=== PATIENT | female | born 1990 | race African-American/Black ===

== ENCOUNTER 2017-12-13 17:39 | Emergency (ER) | payer MEDICAID, OTHER ==
[~2017-12-13] VITALS: Ht 154.9 cm; Wt 101.2 kg
[~2017-12-13 17:39] MED LIST: NO HOME MEDS
[2017-12-13 19:05] VITALS: BP 126/58
[2017-12-14] MEDS ORDERED: NAPR-56 PO (03:10)
== END 2017-12-14 01:57 | disposition left against medical advice (07) ==
LOC: ER 17:39
DX: M25.572 Pain in left ankle and joints of left foot (principal); Z53.21 Procedure and treatment not carried out due to patient leaving prior to being seen by health care provider
CPT/HCPCS: 73610; 99281

== ENCOUNTER 2017-12-14 02:32 | Emergency (ER) | payer MEDICAID, OTHER ==
[~2017-12-14] VITALS: Ht 165.1 cm; Wt 110.0 kg
[2017-12-14] MEDS ORDERED: NAPR-56 PO (03:10)
[2017-12-14] MEDS ORDERED: naproxen 500mg tablet PO ONE (03:10)
[2017-12-14 03:59] VITALS: BP 140/89
== END 2017-12-14 04:02 | disposition home or self-care (01) ==
LOC: ER 02:32
DX: S93.402A Sprain of unspecified ligament of left ankle, initial encounter (principal); F12.10 Cannabis abuse, uncomplicated; F15.10 Other stimulant abuse, uncomplicated; F14.10 Cocaine abuse, uncomplicated; Z56.0 Unemployment, unspecified; Z79.899 Other long term (current) drug therapy; X58.XXXA Exposure to other specified factors, initial encounter; Y93.01 Activity, walking, marching and hiking; Y92.89 Other specified places as the place of occurrence of the external cause; Y99.8 Other external cause status
CPT/HCPCS: 29515; 99283

== ENCOUNTER 2021-08-10 13:14 | Emergency (ER) | payer MEDICAID ==
[~2021-08-10] VITALS: Ht 154.9 cm; Wt 72.7 kg
[~2021-08-10 13:14] MED LIST changes: +PANT-47 PO
[2021-08-10 13:22] VITALS: BP 120/80
[2021-08-10] MEDS ORDERED: glucagon, human recombinant 1mg kit IV ONE (14:40)
[2021-08-10] MEDS ORDERED: nitroGLYCERIN 0.4mg SUBLingual tab SL PRN (14:40)
--- NOTE | 2021-08-10 16:20 | NUR ---
pt walking out of er when stopped and asked what was wrong pt stated she was tired of waiting and was leaving. tried to explain to pt that gi were aon their way but pt started argueing with staff then became verbally abusive. iv removed and pt left
== END 2021-08-10 16:29 | disposition left against medical advice (07) ==
LOC: ER 13:14
DX: T18.128A Food in esophagus causing other injury, initial encounter (principal); R11.10 Vomiting, unspecified; F32.9 Major depressive disorder, single episode, unspecified; F20.9 Schizophrenia, unspecified; F12.90 Cannabis use, unspecified, uncomplicated; F15.90 Other stimulant use, unspecified, uncomplicated; F14.90 Cocaine use, unspecified, uncomplicated; Z72.89 Other problems related to lifestyle; Z56.0 Unemployment, unspecified; Z79.899 Other long term (current) drug therapy; X58.XXXA Exposure to other specified factors, initial encounter; Y93.89 Activity, other specified; Y92.89 Other specified places as the place of occurrence of the external cause; Y99.8 Other external cause status
CPT/HCPCS: 96374; 99283; J1610

== ENCOUNTER 2021-08-11 20:03 | Emergency (ER) | payer MEDICAID ==
[~2021-08-11] VITALS: Ht 154.9 cm; Wt 67.0 kg
[2021-08-11] MEDS ORDERED: nitroGLYCERIN 0.4mg SUBLingual tab SL ONE (21:20)
[2021-08-11] MEDS ORDERED: ondansetron/PF 4mg/2ml inj IV ONE (21:20)
[2021-08-11] MEDS ORDERED: normal saline 1000ML IV soln IVB ONE (21:20)
[2021-08-11] MEDS ORDERED: glucagon, human recombinant 1mg kit IV ONE ×2 (21:20→22:00)
[2021-08-11] MEDS ORDERED: sucralfate 1gm/10ml UD suspension PO STA (21:23)
[2021-08-11] MEDS ORDERED: LIDOcaine Viscous 15ml cup MM ONE (21:25)
[2021-08-11] MEDS ORDERED: mag hydrox/Alum hydrox/simeth 30ml oral suspension PO ONE (21:25)
[2021-08-11] MEDS ORDERED: nitroGLYCERIN 0.4mg SUBLingual tab SL STA (22:00)
[2021-08-11] MEDS ORDERED: LORazepam 2 mg/ml vial IV ONE (22:00)
--- NOTE | 2021-08-11 22:04 | NUR ---
Patient given zofran and then given water to sip. Shortly after water intake pt spit up water, unable to keep it down.
[2021-08-11 22:13] VITALS: BP 124/68
[2021-08-11] MEDS ORDERED: sucralfate 1 gm tablet PO STA (22:34)
== END 2021-08-11 23:25 | disposition home or self-care (01) ==
LOC: ER 20:04
DX: K20.90 Esophagitis, unspecified without bleeding (principal); K22.2 Esophageal obstruction; F32.9 Major depressive disorder, single episode, unspecified; F20.9 Schizophrenia, unspecified; F12.90 Cannabis use, unspecified, uncomplicated; F15.90 Other stimulant use, unspecified, uncomplicated; F14.90 Cocaine use, unspecified, uncomplicated; Z72.89 Other problems related to lifestyle; Z56.0 Unemployment, unspecified; Z79.899 Other long term (current) drug therapy
CPT/HCPCS: 96361; 96374; 96375; 99284; J1610; J2060; J2405; J7030

== ENCOUNTER 2021-12-30 15:11 | Emergency (ER) | payer MEDICAID ==
[~2021-12-30] VITALS: Ht 175.3 cm; Wt 68.2 kg
[2021-12-30] MEDS ORDERED: nitroGLYCERIN 1gm ointment UD TP ONE (18:55)
[2021-12-30] MEDS ORDERED: mag hydrox/Alum hydrox/simeth 30ml oral suspension PO ONE (18:55)
[2021-12-30] MEDS ORDERED: normal saline 1000ml 1,000 ML IV ONE (18:55)
[2021-12-30] MEDS ORDERED: ondansetron/PF 4mg/2ml inj IV ONE (18:55)
[2021-12-30] MEDS ORDERED: LIDOcaine Viscous 15ml cup MM ONE (18:55)
[2021-12-30] MEDS ORDERED: LORazepam 2 mg/ml vial IV ONE (18:55)
[2021-12-30] MEDS ORDERED: glucagon, human recombinant 1mg kit IV ONE (18:55)
--- NOTE | 2021-12-30 20:20 | NUR ---
patient is still spitting up what looks like james
[2021-12-30] MEDS ORDERED: normal saline 1000ML IV soln IVB ONE (21:30)
[2021-12-30 21:49] LABS: BASOPHILS # (AUTO) 0.1 X10'3 (0-0.2); BASOPHILS % (AUTO) 0.6 % (0-1); EOSINOPHILS # (AUTO) 0.2 X10'3 (0-0.9); EOSINOPHILS % (AUTO) 2.3 % (0-6); HEMATOCRIT 33.3 % (35.0-45.0); HEMOGLOBIN 11.1 g/dl (12.0-16.0); LYMPHOCYTES # (AUTO) 1.7 X10'3 (1.1-4.8); LYMPHOCYTES % (AUTO) 17.6 % (21-51); MEAN CORPUSCULAR HEMOGLOBIN 30.6 PG (27.0-31.0); MEAN CORPUSCULAR HGB CONC 33.3 g/dL (33.0-36.5); MEAN PLATELET VOLUME 6.8 FL (7.4-10.4); MONOCYTES # (AUTO) 0.6 X10'3 (0-0.9); MONOCYTES % (AUTO) 6.5 % (2-12); NEUTROPHILS # (AUTO) 6.9 X10'3 (1.8-7.7); PLATELET COUNT 283 X10'3 (140-440); RED BLOOD COUNT 3.62 X10'6 (4.20-5.60); RED CELL DISTRIBUTION WIDTH 13.5 % (11.5-14.5); WHITE BLOOD COUNT 9.5 X10'3 (4.5-11.0)
[2021-12-30 21:56] LABS: ALANINE AMINOTRANSFERASE 26 U/L (12-78); ALBUMIN 3.6 G/DL (3.4-5.0); ALKALINE PHOSPHATASE 68 IU/L (46-116); ANION GAP 8 (8-16); ASPARTATE AMINO TRANSFERASE 21 U/L (10-37); BLOOD UREA NITROGEN 15 MG/DL (7-18); BUN/CREATININE RATIO 29.4 (6.6-38.0); CHLORIDE 114 MMOL/L (99-107); CREATININE 0.51 MG/DL (0.40-0.90); GLUCOSE 68 MG/DL (70-104); LIPASE 69 U/L (73-393); POTASSIUM 3.5 MMOL/L (3.5-5.1); SODIUM 148 MMOL/L (135-145); TOTAL CARBON DIOXIDE 25.6 MMOL/L (24-32); TOTAL PROTEIN 7.2 G/DL (6.4-8.2); eGFR > 90 ML/MIN
[2021-12-31 02:41] LABS: URINE HCG NEGATIVE (NEG)
[2021-12-31 02:47] LABS: CLARITY,URINE CLEAR (Clear); COLOR,URINE YELLOW (Yellow); GLUCOSE, URINE NEGATIVE (Neg); KETONES,URINE 40 mg/dl (Neg); LEUKOCYTE ESTERASE ,URINE NEGATIVE (Neg); NITRITES, URINE NEGATIVE (Neg); OCCULT BLOOD,URINE NEGATIVE (Neg); PROTEIN,URINE NEGATIVE (Neg); UROBILINOGEN,URINE 0.2 E.U/dL (0.2-1.0)
[2021-12-31 02:53] LABS: UA COLLECTION TYPE CLN CATCH MIDSTREAM
[2021-12-31 02:55] LABS: URINE AMPHETAMINE SCREEN POSITIVE (Neg); URINE BARBITUATE SCREEN NEGATIVE (Neg); URINE BENZODIAZEPINES SCREEN NEGATIVE (Neg); URINE CANNABINOID SCREEN NEGATIVE (Neg); URINE COCAINE SCREEN NEGATIVE (Neg); URINE METHADONE SCREEN NEGATIVE (Neg); URINE OPIATE SCREEN NEGATIVE (Neg); URINE PHENCYCLIDINE SCREEN NEGATIVE (Neg)
[2021-12-31] MEDS ORDERED: dextrose 50%-water 50ml dispensing syringe IV ONE ×2 (04:25→04:35)
--- NOTE | 2021-12-31 05:33 | NUR ---
pt tried to drink a soda and spit it back up. pt given d50 for her glucose lvl.
[2021-12-31] MEDS ORDERED: potassium Cl 20 mEq/100mL bag IV ONE (05:55)
--- NOTE | 2021-12-31 07:20 | NUR ---
TO [facility] PER [facility].
[2021-12-31 07:30] VITALS: BP 113/76
[2021-12-31] MEDS ORDERED: diphenhydrAMINE 50 mg/ml inj ONE (07:43)
[2021-12-31] MEDS ORDERED: fentaNYL/PF 50MCG/1 ML 2ML syringe ONE (07:43)
[2021-12-31] MEDS ORDERED: MIDAZolam 1 MG/ML 5ML VIAL ONE (07:43)
[2021-12-31] MEDS ORDERED: LIDOcaine Viscous 15ml cup ONE (07:44)
[2021-12-31 08:19] VITALS: BP 117/62
[2021-12-31 08:29] VITALS: BP 112/74
[2021-12-31 08:39] VITALS: BP 114/68
[2021-12-31 08:49] VITALS: BP 118/71
[2021-12-31] MEDS ORDERED: PANT20TA18 PO (09:23)
[2021-12-31] MEDS ORDERED: pantoprazole 40MG/NS 100ML BAG 100 ML IV SCH (09:25)
[2021-12-31 10:57] VITALS: BP 115/73
== END 2021-12-31 10:59 | disposition home or self-care (01) ==
LOC: ER 15:14
DX: T18.128A Food in esophagus causing other injury, initial encounter (principal); F32.A Depression, unspecified; F20.9 Schizophrenia, unspecified; F12.90 Cannabis use, unspecified, uncomplicated; F15.90 Other stimulant use, unspecified, uncomplicated; F14.90 Cocaine use, unspecified, uncomplicated; Z72.89 Other problems related to lifestyle; Z56.0 Unemployment, unspecified; Z79.899 Other long term (current) drug therapy; X58.XXXA Exposure to other specified factors, initial encounter; Y93.89 Activity, other specified; Y92.89 Other specified places as the place of occurrence of the external cause; Y99.8 Other external cause status
CPT/HCPCS: 36415; 43239; 43247; 80053; 80305; 81003; 81025; 82948; 83690; 85025; 96361; 96374; 96375; 99152; 99285; C9113; J1200; J1610; J2060; J2250; J2405; J3010; J3490; J7030; Z7512; A4620

== ENCOUNTER 2022-09-24 23:54 | Emergency (ER) | payer MEDICAID ==
[~2022-09-24] VITALS: Ht 149.9 cm; Wt 66.4 kg
[~2022-09-24 23:54] MED LIST changes: +PANT20TA18 PO
[2022-09-25 00:32] VITALS: BP 109/94
[2022-09-25] MEDS ORDERED: NAPR-56 PO (08:31)
[2022-09-25] MEDS ORDERED: SULF1TAB49 PO (08:31)
== END 2022-09-25 08:38 | disposition home or self-care (01) ==
LOC: ER 23:54
DX: L03.012 Cellulitis of left finger (principal); F32.A Depression, unspecified; F20.9 Schizophrenia, unspecified; F17.200 Nicotine dependence, unspecified, uncomplicated; F12.90 Cannabis use, unspecified, uncomplicated; F15.90 Other stimulant use, unspecified, uncomplicated; F14.90 Cocaine use, unspecified, uncomplicated; Z72.89 Other problems related to lifestyle; Z56.0 Unemployment, unspecified; Z79.2 Long term (current) use of antibiotics; Z79.899 Other long term (current) drug therapy
CPT/HCPCS: 99284

== ENCOUNTER 2022-10-01 08:52 | Emergency (ER) | payer MEDICAID ==
[~2022-10-01 08:52] MED LIST changes: +NAPR-56 PO; +SULF1TAB49 PO
== END 2022-10-01 13:45 | disposition left against medical advice (07) ==
LOC: ER 08:52
DX: A49.9 Bacterial infection, unspecified (principal); Z53.21 Procedure and treatment not carried out due to patient leaving prior to being seen by health care provider

== ENCOUNTER 2022-10-04 05:20 | Emergency (ER) | payer MEDICAID ==
[~2022-10-04] VITALS: Ht 149.9 cm; Wt 63.2 kg
[2022-10-04] MEDS ORDERED: LIDOcaine 1% W/epiNEPHrine 1:200,000 10ml vial IJ ONE (10:10)
[2022-10-04] MEDS ORDERED: LIDOcaine 1% W/epiNEPHrine 1:100,000 20ml vial IJ ONE (10:20)
[2022-10-04] MEDS ORDERED: LIDOCAINE 2%/EPI 1:100,000 inj. Multi-dose 20 ML VIAL SQ ONE (10:25)
[2022-10-04] MEDS ORDERED: DOXY-411 PO (12:04)
[2022-10-04] MEDS ORDERED: HYDR-3965 PO (12:07)
[2022-10-04] MEDS ORDERED: NAPR-56 PO (12:09)
[2022-10-04 12:15] VITALS: BP 155/84
--- NOTE | 2022-10-04 12:16 | NUR ---
PT educated on d/c instructions, the importance of keeping her finger clean and dry. Also educated new medications. All questions answered and pt verbalized understanding. No s/s of distress. Pt able to ambulate out of the department.
== END 2022-10-04 12:18 | disposition home or self-care (01) ==
LOC: ER 05:21
DX: L03.011 Cellulitis of right finger (principal); F32.A Depression, unspecified; F20.9 Schizophrenia, unspecified; F17.200 Nicotine dependence, unspecified, uncomplicated; F12.90 Cannabis use, unspecified, uncomplicated; F15.90 Other stimulant use, unspecified, uncomplicated; F14.90 Cocaine use, unspecified, uncomplicated; Z72.89 Other problems related to lifestyle; Z56.0 Unemployment, unspecified; Z79.2 Long term (current) use of antibiotics; Z79.899 Other long term (current) drug therapy
CPT/HCPCS: 26011; 73140; 99284; A6407

== ENCOUNTER 2022-10-04 16:50 | Emergency (ER) | payer MEDICAID ==
[~2022-10-04] VITALS: Ht 149.9 cm; Wt 63.2 kg
[~2022-10-04 16:50] MED LIST changes: +DOXY-411 PO; +HYDR-3965 PO
[2022-10-04 17:25] VITALS: BP 142/105
[2022-10-04] MEDS ORDERED: HYDROcodone/acetaminophen 5mg/325mg tablet PO ONE (21:00)
== END 2022-10-04 22:03 | disposition home or self-care (01) ==
LOC: ER 16:50
DX: L03.011 Cellulitis of right finger (principal); F32.A Depression, unspecified; F20.9 Schizophrenia, unspecified; F12.90 Cannabis use, unspecified, uncomplicated; F15.90 Other stimulant use, unspecified, uncomplicated; F14.90 Cocaine use, unspecified, uncomplicated; Z72.89 Other problems related to lifestyle; Z56.0 Unemployment, unspecified; Z79.2 Long term (current) use of antibiotics; Z79.899 Other long term (current) drug therapy
CPT/HCPCS: 99283; A6449

== ENCOUNTER 2023-01-02 20:21 | Emergency (ER) | payer MEDICAID ==
[~2023-01-02] VITALS: Ht 149.9 cm; Wt 67.4 kg
[~2023-01-02 20:21] MED LIST changes: -DOXY-411 PO; -HYDR-3965 PO; -NAPR-56 PO; -SULF1TAB49 PO
[2023-01-02 20:24] VITALS: BP 141/77
== END 2023-01-03 01:00 | disposition left against medical advice (07) ==
LOC: ER 20:21
DX: M25.511 Pain in right shoulder (principal); Z53.21 Procedure and treatment not carried out due to patient leaving prior to being seen by health care provider
CPT/HCPCS: 99281

== ENCOUNTER 2023-06-19 10:29 | Emergency (ER) | payer MEDICAID ==
[~2023-06-19] VITALS: Ht 151.1 cm; Wt 70.0 kg
[2023-06-19 15:10] VITALS: BP 161/96; PULSE 76; RESP 20; TEMP 97; O2SAT 100
[2023-06-19] MEDS ORDERED: TETanus/Pertussis (Acell)/Diphther VAC/PF (Tdap-Adult) 0.5ml syringe IMVAC ONE (16:35)
[2023-06-19] MEDS ORDERED: clindamycin 150mg capsule PO ONE (16:35)
[2023-06-19] MEDS ORDERED: CLIN-97 PO (17:06)
[2023-06-19] MEDS ORDERED: NAPR-996 PO (17:06)
== END 2023-06-19 17:51 | disposition home or self-care (01) ==
LOC: ER 10:29
DX: L03.115 Cellulitis of right lower limb (principal); F12.10 Cannabis abuse, uncomplicated; F15.10 Other stimulant abuse, uncomplicated; F32.A Depression, unspecified; F20.9 Schizophrenia, unspecified; Z56.0 Unemployment, unspecified
CPT/HCPCS: 73630; 90471; 90715; 99283

== ENCOUNTER 2023-09-02 16:57 | Emergency (ER) | payer MEDICAID ==
[~2023-09-02 16:57] MED LIST changes: +CLIN-97 PO; +NAPR-996 PO
--- NOTE | 2023-09-02 17:26 | NUR ---
pt checked in for leg pain then turned around and ran out the door. NIL [id number]
== END 2023-09-02 19:44 | disposition left against medical advice (07) ==
LOC: ER 16:58
DX: R07.9 Chest pain, unspecified (principal)

== ENCOUNTER 2023-09-19 00:50 | Emergency (ER) | payer MEDICAID ==
[~2023-09-19] VITALS: Ht 149.9 cm; Wt 67.7 kg
[2023-09-19 01:08] VITALS: BP 143/58; PULSE 76; RESP 18; TEMP 98.3; O2SAT 100
== END 2023-09-19 04:00 | disposition left against medical advice (07) ==
LOC: ER 00:51
DX: R68.84 Jaw pain (principal); Z53.21 Procedure and treatment not carried out due to patient leaving prior to being seen by health care provider
CPT/HCPCS: 99281

== ENCOUNTER 2023-09-24 01:41 | Emergency (ER) | payer MEDICAID ==
[~2023-09-24] VITALS: Ht 154.9 cm; Wt 67.6 kg
[2023-09-24 01:43] VITALS: BP 139/81; PULSE 73; RESP 16; TEMP 98.2; O2SAT 97
== END 2023-09-24 02:07 | disposition home or self-care (01) ==
LOC: ER 01:42
DX: R04.0 Epistaxis (principal); F12.90 Cannabis use, unspecified, uncomplicated; F15.90 Other stimulant use, unspecified, uncomplicated; F11.90 Opioid use, unspecified, uncomplicated; Z56.0 Unemployment, unspecified; Z79.2 Long term (current) use of antibiotics; Z79.899 Other long term (current) drug therapy
CPT/HCPCS: 99281

== ENCOUNTER 2024-04-15 22:12 | Emergency (ER) | payer OTHER, MEDICAID ==
[~2024-04-15] VITALS: Ht 154.9 cm; Wt 70.0 kg
[2024-04-15 22:55] LABS: URINE HCG NEGATIVE (NEG)
[2024-04-15 23:18] VITALS: BP 100/79; PULSE 55; RESP 16; TEMP 98; O2SAT 99
== END 2024-04-15 23:20 | disposition home or self-care (01) ==
LOC: ER 22:13
DX: T18.0XXA Foreign body in mouth, initial encounter (principal); F12.90 Cannabis use, unspecified, uncomplicated; F15.90 Other stimulant use, unspecified, uncomplicated; F14.90 Cocaine use, unspecified, uncomplicated; Z79.2 Long term (current) use of antibiotics; Z79.899 Other long term (current) drug therapy; W44.A0XA Battery unspecified, entering into or through a natural orifice, initial encounter; Y93.89 Activity, other specified; Y92.89 Other specified places as the place of occurrence of the external cause; Y99.8 Other external cause status
CPT/HCPCS: 71046; 81025; 99284